=== PATIENT | male | born 1955 | race Caucasian/White ===

== ENCOUNTER 2023-11-01 15:54 | Inpatient (IN) | payer MEDICARE, OTHER, SELFPAY ==
--- NOTE | ~2023-11-01 | MR_ITS ---
EXAMINATION: MR BRAIN WITHOUT CONTRAST CLINICAL INFORMATION: Right-sided facial droop, dysarthria COMPARISON: CTA 11/01/2023 TECHNIQUE: MRI of the brain was obtained using routine sequences without contrast. FINDINGS: Motion degraded examination. There is an acute infarct involving the left frontal lobe precentral gyrus with significant mass effect nor hemorrhagic transformation. No acute intracranial hemorrhage or extra-axial fluid collection. Mild global cerebral volume loss. Patchy T2 FLAIR hyperintense foci in the subcortical and periventricular white matter, nonspecific but presumably advanced chronic microangiopathy. Chronic lacunar infarcts within the bilateral cerebellar hemispheres and multiple punctate within the bilateral skelton radiata/centrum semiovale. No mass lesion, mass effect, or herniation pattern. Normal intracranial arterial and dural venous sinus flow voids. Normal appearance of the midline structures. The orbits are grossly unremarkable. The paranasal sinuses and mastoids are well aerated. Normal marrow signal. MR/MR head/brain wo con IMPRESSION: 1. Acute infarct involving the left frontal lobe precentral gyrus with significant mass effect nor hemorrhagic transformation. 2. Mild volume loss and nonspecific white matter disease, presumably moderate chronic microangiopathy. 3. Chronic lacunar infarcts within the bilateral cerebellar hemispheres and multiple punctate within the bilateral skelton radiata/centrum semiovale.
--- NOTE | ~2023-11-01 | CT_ITS ---
EXAMINATION: CT HEAD WITHOUT CONTRAST (STROKE PROTOCOL) CLINICAL INFORMATION: Stroke protocol. Left facial droop and dysarthria COMPARISON: None available. TECHNIQUE: Contiguous axial imaging was performed from the skull base to vertex without intravenous administration of contrast. This CT examination was performed using dose optimization techniques as appropriate, variously including the following: *Automated exposure control *Adjustment of mA and/or kV according to patient size (this includes techniques or standardized protocols for targeted exams where dose is matched to indication/reason for exam; i.e. extremities or head) *Use of iterative reconstruction technique DLP: 653 mGy-cm FINDINGS: There is no acute intracranial hemorrhage. There is no evidence of acute/subacute cerebral or cerebellar infarction. There is moderate microvascular ischemic change. There is a punctate focus of hyperdensity within the posterior right insula which may represent a focally occluded vessel. There is no mass effect or midline shift. No extra-axial fluid collection. The ventricles are normal in size. The orbits are symmetric and within normal limits. The visualized paranasal sinuses are clear. Mastoid air cells are clear. CT/CT head for stroke IMPRESSION: No acute intracranial hemorrhage or evidence of acute/subacute cerebral or cerebellar infarction. There is a punctate focus of hyperdensity within the posterior right insula which may represent a focally occluded vessel. Moderate microvascular ischemic change. This critical result was discussed with Angela Combs md at 4:27 PM hours on 11/01/2023. It was ascertained that the content and urgency of the report was understood at the time of direct communication.
--- NOTE | ~2023-11-01 | XR_ITS ---
EXAMINATION: XR CHEST CLINICAL INFORMATION: Stroke protocol COMPARISON: None available. TECHNIQUE: Frontal portable view of the chest was obtained. 4:59 PM FINDINGS: No significant abnormality is noted involving the heart, lungs, mediastinum, bony thorax or soft tissues. XR/XR chest 1V IMPRESSION: Unremarkable examination.
--- NOTE | ~2023-11-01 | CT_ITS ---
EXAMINATION: CT angio head neck stroke CLINICAL INFORMATION: Stroke protocol. Left facial droop and dysarthria. COMPARISON: CT scan of the head 11/01/2023. TECHNIQUE: Umbrella Finisher images were obtained. A CT angiogram of the head and neck was performed in the arterial phase after the intravenous administration of 70 mL Omnipaque 350. Pre and delayed postcontrast images of the head were also obtained. 3D images were processed on an independent workstation under concurrent supervision. Arterial stenoses are measured in accordance with NASCET criteria or similar method if applicable. This CT examination was performed using dose optimization techniques as appropriate, including one or more of the following: Automated exposure control, iterative reconstruction, and adjustment of technique factors (mA and/or kVp) according to patient size (this includes techniques or standardized protocols for targeted exams where dose is matched to indication/reason for exam). Fleischner Society criteria for the followup of incidental pulmonary nodules was implemented if appropriate. 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 Postcontrast images of the brain otherwise reveal no abnormal intracranial mass or enhancement. There is no intracranial mass effect or midline shift. Lateral and third ventricles are normal. No hydrocephalus. There are numerous foci of hypoattenuation within the periventricular white matter that most likely represent a chronic manifestation of small vessel ischemia. Schwartz-white matter differentiation is otherwise preserved and there is no evidence of acute territorial infarct. The calvarium and skull base are intact. No mastoid middle ear effusion. No active paranasal sinus disease. Globes and orbits are grossly symmetric. CT angiogram neck: The aortic arch apex is normal. Origins of the major aortic branches are widely patent. Common carotid arteries are patent. There is a small amount of partially calcified atheromatous plaque at both carotid bifurcations. No stenosis of the extracranial internal carotid arteries. The cervical segments of the vertebral arteries are patent. CT angiogram head: Atheromatous calcification involves the cavernous segments of both internal carotid arteries. Intracranial internal carotid arteries are otherwise patent. Intradural vertebral artery segments and basilar artery are patent. Anterior, middle, and posterior cerebral complexes are normal. No intracranial large vessel occlusion. No identifiable aneurysm or high flow vascular lesion. Other: Soft tissues of the neck including the thyroid gland are normal. No pathologically enlarged cervical lymph nodes. There is a small calcified subpleural granuloma located within the right upper lobe. Visualized lung apices are otherwise clear. No acute osseous finding. Specifically no worrisome lytic or blastic osseous lesion. CT/CT angio head neck stroke IMPRESSION: There are numerous chronic small vessel ischemic changes within the periventricular white matter. No evidence of acute territorial infarct or hemorrhage. No abnormal intracranial mass or enhancement. There is a developmental venous anomaly traversing the left inferior frontal lobe. No stenosis of the cervical carotid or vertebral arteries. No intracranial large vessel occlusion.
--- NOTE | 2023-11-01 16:00 | ECG_ITS ---
Test Reason : STROKE PROTOCOL Blood Pressure : / mmHG Vent. Rate : 080 BPM Atrial Rate : 080 BPM P-R Int : 138 ms QRS Dur : 074 ms QT Int : 386 ms P-R-T Axes : 054 004 031 degrees QTc Int : 445 ms Normal sinus rhythm Normal ECG No previous ECGs available Referred By: Karson Morales Electronically Signed By:Nadir Leyva
[2023-11-01 16:01] VITALS: BP 114/72; BP 142/76; PULSE 84; PULSE 92; RESP 18; TEMP 36.9; O2SAT 94; O2SAT 98; BMI 26.7
[2023-11-01 16:07] LABS: MANUAL DIFF FLAG NO
[2023-11-01 16:08] LABS: Basophils Percent Auto 0.5 % (0-2); Eosinophils Absolute Auto 0.1 X10*3/uL (0.0-0.4); Eosinophils Percent Auto 1.7 % (0-4); Hematocrit 42.8 % (42.0-52.0); Hemoglobin 14.9 g/dl (14.0-18.0); Imm Gran Abs Auto 0.02 X10*3/uL (0.00-0.03); Imm Gran Pct Auto 0.3 % (0.0-0.4); Lymphocytes Absolute Auto 2.1 X10*3/uL (1.2-4.9); Lymphocytes Percent Auto 35.3 % (20-40); Mean Corpuscular HGB Conc 34.8 g/dl (31.0-36.0); Mean Corpuscular Hemoglobin 32.8 pg (27.0-33.0); Mean Corpuscular Volume 94.3 fL (80.0-98.0); Mean Platelet Volume 9.8 fL (9.4-12.4); Monocytes Absolute Auto 0.6 X10*3/uL (0.1-1.2); Monocytes Percent Auto 10.4 % (2-11); Neutrophils Percent Auto 51.8 % (45-73); Platelet Count 231 X10*3/uL (160-400); Red Blood Count 4.54 X10*6/uL (4.60-5.80); Red Cell Distribution Width 12.4 % (11.0-16.0); White Blood Count 5.9 X10*3/uL (4.8-10.8)
[2023-11-01 16:14] LABS: INTERNATIONAL NORM RATIO 0.9 (0.9-1.1); Prothrombin Time 11.3 SEC (11.1-13.3)
[2023-11-01 16:17] LABS: Partial Thromboplastin Time 31.3 SEC (26.0-36.8)
[2023-11-01 16:18] LABS: Stroke Lab Use COMPLETE
--- NOTE | 2023-11-01 16:19 | ED_ITS ---
HPI - Neuro Symptoms/Deficit General Chief Complaint: Stroke Stated Complaint: from [facility] ed scale 3, r sided facial randy Time Seen by Provider: 11/01/23 15:57 Source: patient and EMS Mode of arrival: EMS Limitations: no limitations History of Present Illness ED Provider: Dr. Juliane Combs HPI Narrative: Patient comes to the emergency room via ambulance from [facility]. According to the patient, at 14:30, patient noticed that his arm was having abnormal involuntary movements. Patient was mowing the lawn at work. Patient continue to work. Around 330, patient noticed that he was trying to speak to coworkers, he has speech was significantly slurred. [place] called 911. Per EMS, patient was found to have dysarthria and right-sided mouth droop, no upper or lower extremity weakness. Patient states that he is aware that his speech is off. Seems that earlier today he had a bit of aphasia but by the time he arrived in the emergency room the aphasia resolved Related Data Allergies Allergy/AdvReac Type Severity Reaction Status Date / Time No Known Allergies Allergy Verified 11/01/23 16:03 Review of Systems 2 Review of Systems: Constitutional : No Weight loss, No Fever, No Chills, No Night Sweats, No Fatigue, No Malaise ENT/Mouth : No Hearing loss, No Ear Pain, No Nasal Congestion, No Sinus Pain, No Hoarseness, No sore throat, No Rhinorrhea, No Swallowing Difficulty Eyes: No Eye Pain, No Swelling, No Redness, No Foreign Body, No Discharge, No Vision Changes Cardiovascular : No Chest Pain, No SOB, No Dyspnea on Exertion, No Orthopnea, No Edema, No Palpitations Respiratory : No Cough, No Sputum, No Wheezing, No Smoke Exposure, No Dyspnea Gastrointestinal : No Nausea, No Vomiting, No Diarrhea, No Constipation, No abdominal Pain, No Hematochezia, No Melena Genitourinary : no irregular bleeding, No Dysuria, No Urinary Frequency, No Hematuria, No Urinary Incontinence, No Urgency, No Flank Pain, No Urinary Flow Changes, No Hesitancy Musculoskeletal : No joint pain, No Myalgias, No Joint Swelling Skin : No Skin Lesions, No rash Neuro : complaining of dysarthria and a voluntary right arm Movement Psych : No Anxiety/Panic, No Depression, No SI/HI/AH/VH, No Social Issues, Heme/Lymph: No Bruising, No Bleeding,No Lymphadenopathy Endocrine : No Polyuria, No Polydipsia, No Temperature Intolerance [facility] Past Medical History Medical History (Updated 11/01/23 @ 17:53 by Juliane Combs MD) Hyperlipidemia Social History Social History Smoked in Last 30 Days: No Use of substances other than those prescribed or required for medical reasons: No Advance Directives: No Advance Directives Information Provided: No Do you have a plan to hurt others: No Plan Physical Exam 2 Vital Signs: Vital Signs: Last Vital Signs Temp 97.9 F 11/01/23 17:14 Pulse 73 11/01/23 17:14 Resp 13 11/01/23 17:14 BP 135/76 11/01/23 17:14 Pulse Ox 96 11/01/23 17:14 O2 Del Method Room Air 11/01/23 17:14 BMI result Body Mass Index 26.7 Const: Other: Appearance: Alert. Oriented X3. No acute distress. Eyes: Pupils equal, round and reactive to light. ENT: Pharynx normal. Neck: Normal inspection. Neck supple. No lymph nodes noted. No crepitus CVS: Normal heart rate and rhythm. Pulses normal. Normal S1 and S2 Respiratory: No respiratory distress. Breath sounds normal. No Wheezing. No rales Abdomen: Soft and nontender. No rigidity. No distention. Skin: Skin warm and dry. Normal skin color. Normal skin turgor. Extremities: No lower extremity edema. No Lacerations. No Rash Neuro: patient has mild dysarthria, right-sided mouth droop, 5/5 strength in bilateral upper and lower extremities. No drifting, NIH 2. patient is able to read a loud with nearly normal speech, patient is able to repeat words. Patient is able to name pictures/ drawings without any difficulty, other than patient needs glasses to read and he did not bring with him. but still able to identify objects and name them Psych: calm, cooperative, normal affect Medications Administered Discontinued Medications Generic Name Dose Route Start Last Admin Trade Name Carlosq PRN Reason Stop Dose Admin Aspirin 325 mg 11/01/23 15:59 11/01/23 16:41 Aspirin 325 Mg Tablet PO 11/01/23 16:00 325 mg ONCE ONE Administration Sodium Chloride 1,000 mls @ 999 mls/hr 11/01/23 16:00 11/01/23 16:37 Ns IV 11/01/23 17:00 999 mls/hr .Q1H1M CAMERON Administration Sodium Chloride 1,000 mls @ 999 mls/hr 11/01/23 16:00 11/01/23 16:37 Ns IV 11/01/23 17:00 999 mls/hr .Q1H1M CAMERON Administration Iohexol 100 ml 11/01/23 16:32 11/01/23 16:33 Iohexol 350 Mg/Ml 100 Ml Infus..Btl IV 11/01/23 16:33 70 ml ONCE ONE Administration Medical Decision Making Medical Decision Making MDM Narrative: - I discussed the dry CT scan with our radiologist on-call. There is no acute intracranial hemorrhage or evidence of acute or subacute cerebral or cerebellar infarction. However there is a punctured focus of hyperdensity within the posterior right insula which may represent a focally occluded vessel - I discussed the patient with Dr. Ramirez from neurology at 16:35. at this time, it is possible that patient may have focal thrombi. We will wait for the CTA to make a decision. - I discussed the CTA findings with Dr. Ramirez. At this time, the deficits are minor, we will not proceed with TNK - I discussed the above-mentioned with the patient and his , both agreeable with the plan - patient's vitals stable, received a dose of aspirin already - I discussed the patient with our hospitalist, patient being admitted Differential Diagnosis Differential Diagnoses: The differential diagnosis associated with the presentation includes ( TIA, CVA, seizure) Admission/Observation Consideration of admission/observation: Escalation of care including admission/observation considered Consult Healthcare Provider Management of the patient was discussed with: Hospitalist and Fire[employer] Sales Associate Lab Data MDM Lab Attestation statement: I reviewed the patient's lab results. 11/01/23 15:57 11/01/23 15:57 Labs: Lab Results 11/01/23 11/01/23 11/01/23 Range/Units 15:57 15:58 16:45 WBC 5.9 (4.8-10.8) X10*3/uL RBC 4.54 L (4.60-5.80) X10*6/uL Hgb 14.9 (14.0-18.0) g/dl Hct 42.8 (42.0-52.0) % MCV 94.3 (80.0-98.0) fL MCH 32.8 (27.0-33.0) pg MCHC 34.8 (31.0-36.0) g/dl RDW 12.4 (11.0-16.0) % Plt Count 231 (160-400) X10*3/uL MPV 9.8 (9.4-12.4) fL Immature Gran % (Auto) 0.3 (0.0-0.4) % Neut % (Auto) 51.8 (45-73) % Lymph % (Auto) 35.3 (20-40) % [place] % (Auto) 10.4 (2-11) % Eos % (Auto) 1.7 (0-4) % Baso % (Auto) 0.5 (0-2) % Lymph # (Auto) 2.1 (1.2-4.9) X10*3/uL [place] # (Auto) 0.6 (0.1-1.2) X10*3/uL Eos # (Auto) 0.1 (0.0-0.4) X10*3/uL Baso # (Auto) 0.0 (0.0-0.2) X10*3/uL Abs Immat Gran (auto) 0.02 (0.00-0.03) X10*3/uL Absolute Neuts (auto) 3.0 (2.0-8.3) x10*3/uL Absolute Nucleated RBC 0.000 (0.0-0.012) X10*3/uL Nucleated RBC % (auto) 0.0 (0.0-0.2) /100WBC Hold Purple Top SEE NOTE PT 11.3 (11.1-13.3) SEC Whole Blood PT 12.2 (11.1-13.5) sec INR 0.9 (0.9-1.1) Whole Blood INR 1.0 (0.9-1.1) APTT 31.3 (26.0-36.8) SEC Hold Blue Top SEE NOTE Sodium 143 (135-145) mmol/L Potassium 4.2 (3.3-5.1) mmol/L Chloride 108 (96-108) mmol/L Carbon Dioxide 24 (22-29) mmol/L Anion Gap 15 (12-20) BUN 16 (9-16) mg/dL Creatinine 0.85 (0.5-1.4) mg/dL Estim Creat Clear Calc 90.0 Estimated GFR > 60 Random Glucose 104 (60-115) mg/dL Calcium 10.3 H (8.4-10.2) mg/dL Troponin I High Sens < 2.7 (<3.5-35.0) ng/L Triglycerides 87 (<150) mg/dL Cholesterol 161 (<200) mg/dL LDL Cholesterol, Calc 96 (<100) mg/dL HDL Cholesterol 48 (>40) mg/dL COVID-19 (GABRIELE) Negative (Negative) COVID-19 Clin Com See Note Independent Interpretation I performed an independent interpretation of an: CT Scan Radiology Impression Discussion of test interpretation with radiology: I discussed test interpretation with the radiologist and I have reviewed the radiologist's reading. Radiologist Impression: Head: There is a developmental venous anomaly traversing the left inferior frontal lobe. Postcontrast images of the brain otherwise reveal no abnormal intracranial mass or enhancement. There is no intracranial mass effect or midline shift. Lateral and third ventricles are normal. No hydrocephalus. There are numerous foci of hypoattenuation within the periventricular white matter that most likely represent a chronic manifestation of small vessel ischemia. Schwartz-white matter differentiation is otherwise preserved and there is no evidence of acute territorial infarct. The calvarium and skull base are intact. No mastoid middle ear effusion. No active paranasal sinus disease. Globes and orbits are grossly symmetric. CT angiogram neck: The aortic arch apex is normal. Origins of the major aortic branches are widely patent. Common carotid arteries are patent. There is a small amount of partially calcified atheromatous plaque at both carotid bifurcations. No stenosis of the extracranial internal carotid arteries. The cervical segments of the vertebral arteries are patent. CT angiogram head: Atheromatous calcification involves the cavernous segments of both internal carotid arteries. Intracranial internal carotid arteries are otherwise patent. Intradural vertebral artery segments and basilar artery are patent. Anterior, middle, and posterior cerebral complexes are normal. No intracranial large vessel occlusion. No identifiable aneurysm or high flow vascular lesion. Other: Soft tissues of the neck including the thyroid gland are normal. No pathologically enlarged cervical lymph nodes. There is a small calcified subpleural granuloma located within the right upper lobe. Visualized lung apices are otherwise clear. No acute osseous finding. Specifically no worrisome lytic or blastic osseous lesion. CT/CT angio head neck stroke IMPRESSION: There are numerous chronic small vessel ischemic changes within the periventricular white matter. No evidence of acute territorial infarct or hemorrhage. No abnormal intracranial mass or enhancement. There is a developmental venous anomaly traversing the left inferior frontal lobe. No stenosis of the cervical carotid or vertebral arteries. No intracranial large vessel occlusion. NIH Stroke Scale Internal: Initial- Upon Arrival Level of Consciousness: Alert Level of Consciousness Questions: Answers both questions correctly Level of Consciousness Commands: Performs both tasks correctly Best Gaze: Normal Visual: No visual loss Facial Palsy: Minor paralyis Motor Arm (Right): No drift Motor Arm (Left): No drift Motor Leg (Right): No drift Motor Leg (Left): No drift Limb Ataxia: Absent Sensory: Normal Best Language: No aphasia Dysarthia: Mild to moderate dysarthria Extinction and Inattention: No abnormality Score: 2 Critical Care Time Critical Care Time Critical Care Time: Yes Total Critical Care Time: 60 Attestation: I have personally provided critical care time. Time includes review of lab data, radiology results, discussion with consultants, and monitoring for potential decompensation. Intervention performed as documented. Discharge Plan Discharge Clinical Impression: Cerebrovascular accident Patient Disposition: Admitted As Inpatient Print Language: Nepali
[2023-11-01 16:26] LABS: Anion Gap 15 (12-20); Blood Urea Nitrogen 16 mg/dL (9-16); Calcium 10.3 mg/dL (8.4-10.2); Carbon Dioxide 24 mmol/L (22-29); Chloride 108 mmol/L (96-108); Cholesterol 161 mg/dL (<200); Estimated Glomerular Filt Rate > 60; Glucose Random 104 mg/dL (60-115); HDL Cholesterol 48 mg/dL (>40); LDL Cholesterol Calculated 96 mg/dL (<100); Potassium 4.2 mmol/L (3.3-5.1); Sodium 143 mmol/L (135-145); Triglycerides 87 mg/dL (<150)
[2023-11-01] MEDS: iohexoL 350 MG/ML 100 ML INFUS..BTL IV (16:33)
[2023-11-01 16:34] LABS: Troponin-I High Sensitivity < 2.7 ng/L (<3.5-35.0)
[2023-11-01 16:35] LABS: Prothrombin Time Whole Bld POC 12.2 sec (11.1-13.5)
[2023-11-01] MEDS: 0.9 % Sodium Chloride 1,000 ML 999 ML IV ×2 (16:37)
[2023-11-01 16:40] VITALS: BP 127/70; PULSE 75; RESP 15; O2SAT 94
[2023-11-01] MEDS: Aspirin 325 MG TABLET PO (16:41)
[2023-11-01 17:10] LABS: COVID-19 Test Negative (Negative); IDNOW Serial# 58CA691E
[2023-11-01 17:14] VITALS: BP 135/76; PULSE 73; RESP 13; TEMP 36.6; O2SAT 96
--- NOTE | 2023-11-01 18:08 | P.HPHOSP_ITS ---
History of Present Illness Date of Service: 11/01/23 Attending physician on admission: Harshad [facility] Chief Complaint: Right-sided facial droop, dysarthria Pt is a 67-year-old male with a PMH significant only for?HLD who follows regularly with his PCP who presents to the ED with?right-sided facial droop and difficulty speaking since earlier this afternoon. Patient states symptoms began at approximately 02:30 when he was mowing the lawn at [facility]. Patient states that all of a sudden his right arm started moving up and down uncontrollably approximately 4-5 times and lasting a total of 10 seconds. Shortly thereafter patient noticed he was slurring his words and having difficulty speaking while talking to co-workers. Also noted some numbness on his right face that has since resolved. Patient then presented to the ED for further examination. Patient denies any other acute medical concerns. Denies numbness, tingling, or weakness in extremities. No headache, acute vision changes, memory impairment, difficulty word finding, or fogginess and thinking. Denies difficulty swallowing. Denies chest pain/pressure, palpitations. No shortness a breath. Denies fever, chills, nausea, vomiting, abdominal pain. In the ED pt's vitals were stable and WNL. Labs were grossly unremarkable. No leukocytosis. Stable H&H. No significant electrolyte abnormalities. Renal function WNL. Troponin negative. Lipid panel WNL. CT?of head showed no acute intracranial hemorrhage or evidence of acute/subacute cerebral or cerebellar infarction, but did show punctate focus of hyperdensity within the posterior right insula which may represent a focally occluded vessel. CTA of head/neck showed numerous chronic small-vessel ischemic changes within the periventricular white matter, but no evidence of acute territorial infarction or hemorrhage, and no abnormal intracranial mass or enhancement. Did show a developmental venous anomaly transversing the left anterior frontal lobe. Also was negative for stenosis of the cervical carotid or vertebral arteries, and showed no intracranial large vessel occlusion. EKG demonstrated normal sinus rhythm without evidence of significant ST elevations or depressions. Pt was treated with 2 L IVF and aspirin 325 mg. Pt will be admitted to the hospital for treatment and further evaluation of right-sided facial droop and dysarthria concerning for CVA. Review of Systems 2 Review of Systems: Involuntary right arm movements Right-sided facial numbness and droop Dysarthria Denies numbness, tingling, weakness in extremities No headache, acute vision changes, memory impairment, or delayed thinking No chest pain/pressure, palpitations Denies shortness a breath or difficulty breathing No fever, chills, nausea, vomiting, abdominal pain [facility] Medical History (Updated 11/01/23 @ 17:53 by Juliane Combs MD) Hyperlipidemia Social History Smoked in Last 30 Days: No Use of substances other than those prescribed or required for medical reasons: No Advance Directives: No Advance Directives Information Provided: No Do you have a plan to hurt others: No Plan Meds Allergies Allergy/AdvReac Type Severity Reaction Status Date / Time No Known Allergies Allergy Verified 11/01/23 16:03 Home Medications ?Medication ?Instructions ?Recorded ?Confirmed ?Last Taken ?Type multivitamin 1 tab PO DAILY 11/01/23 11/01/23 11/01/23 History simvastatin 40 mg tablet 40 mg PO DAILY 11/01/23 11/01/23 11/01/23 History Physical Exam 2 Vital Signs and Narrative: Vital Signs: Last Vital Signs Temp 97.9 F 11/01/23 17:14 Pulse 73 11/01/23 17:14 Resp 13 11/01/23 17:14 BP 135/76 11/01/23 17:14 Pulse Ox 96 11/01/23 17:14 O2 Del Method Room Air 11/01/23 17:14 BMI result Body Mass Index 26.7 General: AOx3, no acute distress Resp: CTA bilaterally CVS: S1, S2, RRR GI: +BS, NT, no distention Skin: Warm, dry Neuro: Cranial nerves II-XII grossly intact bilaterally. Motor grossly intact bilaterally. Right-sided facial droop with noted d ysarthria. Sensation to light touch intact of face, upper and lower extremities bilaterally. Strength of upper and lower extremities bilaterally intact and symmetrical. Patient handling secretions well. Extremities: No edema Psych: Appropriate affect Results Labs 11/01/23 15:57 11/01/23 15:57 Labs: Laboratory Results - last 24 hr 11/01/23 11/01/23 11/01/23 15:57 15:58 16:45 MCV 94.3 MCH 32.8 MCHC 34.8 RDW 12.4 Plt Count 231 MPV 9.8 Immature Gran % (Auto) 0.3 Neut % (Auto) 51.8 Lymph % (Auto) 35.3 [place] % (Auto) 10.4 Eos % (Auto) 1.7 Baso % (Auto) 0.5 Lymph # (Auto) 2.1 [place] # (Auto) 0.6 Eos # (Auto) 0.1 Baso # (Auto) 0.0 Abs Immat Gran (auto) 0.02 Absolute Neuts (auto) 3.0 Absolute Nucleated RBC 0.000 Nucleated RBC % (auto) 0.0 Hold Purple Top SEE NOTE PT 11.3 Whole Blood PT 12.2 INR 0.9 Whole Blood INR 1.0 APTT 31.3 Hold Blue Top SEE NOTE Anion Gap 15 Estim Creat Clear Calc 90.0 Estimated GFR > 60 Random Glucose 104 Calcium 10.3 H Troponin I High Sens < 2.7 Triglycerides 87 Cholesterol 161 LDL Cholesterol, Calc 96 HDL Cholesterol 48 COVID-19 (GABRIELE) Negative COVID-19 Clin Com See Note Imaging Radiologist's Impressions: Impressions Head CT 11/01/23 16:07 IMPRESSION: No acute intracranial hemorrhage or evidence of acute/subacute cerebral or cerebellar infarction. There is a punctate focus of hyperdensity within the posterior right insula which may represent a focally occluded vessel. Moderate microvascular ischemic change. This critical result was discussed with Angela Combs md at 4:27 PM hours on 11/01/2023. It was ascertained that the content and urgency of the report was understood at the time of direct communication. Head/Neck CTA 11/01/23 16:32 IMPRESSION: There are numerous chronic small vessel ischemic changes within the periventricular white matter. No evidence of acute territorial infarct or hemorrhage. No abnormal intracranial mass or enhancement. There is a developmental venous anomaly traversing the left inferior frontal lobe. No stenosis of the cervical carotid or vertebral arteries. No intracranial large vessel occlusion. Assessment and Plan (1) Cerebrovascular accident: Status: Acute Plan Pt is a 67-year-old male with a PMH significant only for?HLD who follows regularly with his PCP who presents to the ED with?right-sided facial droop and difficulty speaking since earlier this afternoon. Pt will be admitted to the hospital for treatment and further evaluation of right-sided facial droop and dysarthria concerning for CVA. Right-sided facial droop and dysarthria Symptoms began earlier this afternoon, also included 10-second episode of involuntary right arm movement Concerning for CVA Patient with continued right-sided facial droop and dysarthria; facial numbness resolved CT of head showed punctate focus of hyperdensity within posterior right insula possibly representing focally occluded vessel CTA of head/neck negative for acute territorial infarct or hemorrhage, no stenosis of cervical carotid, vertebral arteries, or intracranial large vessel occlusion Patient given aspirin in the ED Lipid profile WNL Start on aspirin 81 mg daily Continue statin Echocardiogram with bubble study PT/OT and speech evaluation Neurology consult Monitor on telemetry Full Code, though pt does not want prolonged resuscitation attempts or prolonged time on life support Attending:?Dr. Carreno DVT Prophylaxis: Lovenox Pt will require a hospitalization of at least two nights for treatment and further evaluation of continued right-sided facial droop and dysarthria concerning for acute CVA. Quality Stroke Does the patient have a stroke diagnosis?: Yes Reason for No Anti-thrombotic by Day Two: Contraindicated (Spoke to neurology who held off on tNK due to pt's symptoms being minor) VTE Prior VTE?: No VTE Risk Level:: Medical - moderate - high VTE Device Contraindication: Treatment Not Indicated VTE Drug Contraindication: N/A - Med Ordered
[2023-11-01 19:14] VITALS: BP 143/71; PULSE 77; RESP 18; TEMP 37.1; O2SAT 95
[2023-11-01] MEDS: Enoxaparin Sodium 40 MG/0.4 ML SYRINGE SUBCUT (19:39)
--- NOTE | 2023-11-01 20:05 | PHA.MEDREC ---
Addendum entered by [facility] 11/01/23 20:14: MED REC DOUBLE CHECKED BY [facility] Original Note: Pharmacy Consult ? Medication Reconciliation Pharmacy has completed the medication reconciliation. Confirmed medications with patient.
[2023-11-01 22:50] VITALS: BP 121/74; PULSE 80; RESP 16; TEMP 36.6; O2SAT 95
--- NOTE | 2023-11-01 22:50 | PC.NURSE ---
ok for pt to go to the floor at this time, @2004, i was asked to hold pt, per Anne Balderas. pt is doing better at this time, no slurred speech, and the left side facial droop is gone
[2023-11-01 23:45] VITALS: BP 127/73; PULSE 70; RESP 18; TEMP 36.5; O2SAT 96
[2023-11-02 03:40] VITALS: BP 112/66; PULSE 62; RESP 20; TEMP 36.1; O2SAT 96
[2023-11-02 07:25] VITALS: BP 112/66; PULSE 62; O2SAT 96
[2023-11-02 07:54] VITALS: BP 115/71; PULSE 64; RESP 18; TEMP 36.3; O2SAT 96
[2023-11-02] MEDS: Aspirin Enteric Coated 81 MG TABLET.DR PO (08:58)
[2023-11-02] MEDS: 0.9 % Sodium Chloride Flush 3 ML SYRINGE IVFLUSH (08:58)
--- NOTE | 2023-11-02 09:53 | P.CNNE_ITS ---
History of Present Illness Data of Consult Service Date: 11/02/23 Primary Care Provider: Shayla Arceo MD HPI Reason for consult: Stroke 67 years old man with apparently no underlying hypertension or diabetes or significant hyperlipidemia or any obvious stroke risk factor including lack of drug abuse or significant alcohol drinking, physically quite active, came to hospital with stroke-like symptoms. He was working outside when he noted that his right hand started to move on its own. It lasted few seconds and then he noted something wrong with his speech. He came to emergency room and initial evaluation only suggested mild facial asymmetry and mild dysarthria. After discussing with ER physician and reviewing findings of his CT and CTA, it was decided not to treat him with TNK despite the fact that he might be having a small ischemic infarction. Deficit was minor and CT was significantly abnormal though not revealing any acute abnormality. Now he was feeling better. Apparently there was no confusion associated with this episode. Review of Systems 2 Review of Systems: No chest pain shortness of breath headache or exposure to new medicine or cold or flu-like illness PMFSH Past Medical History Medical History (Updated 11/02/23 @ 09:57 by David Ramirez MD) Hyperlipidemia Social History Social History Household Members: Spouse Housing: House Patient Tobacco Use Status: Never used Tobacco Meds Allergies Allergy/AdvReac Type Severity Reaction Status Date / Time No Known Allergies Allergy Verified 11/01/23 16:03 Active Medications: Current Medications Acetaminophen (Acetaminophen 325 Mg Tablet) 650 mg PO Q6H PRN PRN Reason: Pain, Mild (Pain Scale 1-3), fever or headache Aspirin (Aspirin Enteric Coated 81 Mg Tablet.Dr) 81 mg PO DAILY [facility] Last Admin: 11/02/23 08:58 Dose: 81 mg Benzonatate (Benzonatate 100 Mg Capsule) 100 mg PO TID PRN PRN Reason: Cough Calcium Carbonate (Calcium Carbonate 750 Mg Tab.Chew) 750 mg PO Q4H PRN PRN Reason: Heartburn Enoxaparin Sodium (Enoxaparin Sodium 40 Mg/0.4 Ml Syringe) 40 mg SUBCUT Q24H [facility] Last Admin: 11/01/23 19:39 Dose: 40 mg Magnesium Hydroxide (Milk Of Magnesia 30 Ml Oral.Susp) 30 ml PO DAILY PRN PRN Reason: Constipation Melatonin (Melatonin 3 Mg Tablet) 6 mg PO BEDTIME PRN PRN Reason: Insomnia Ondansetron HCl (Ondansetron Hcl 4 Mg/2 Ml Vial) 4 mg IVPUSH Q8H PRN PRN Reason: Nausea and Vomiting Sodium Chloride (0.9 % Sodium Chloride Flush 3 Ml Syringe) 3 ml IVFLUSH QSHIFT [facility] Last Admin: 11/02/23 08:58 Dose: 3 ml Home Medications ?Medication ?Instructions ?Recorded ?Confirmed ?Last Taken ?Type multivitamin 1 tab PO DAILY 11/01/23 11/01/23 11/01/23 History simvastatin 40 mg tablet 40 mg PO DAILY 11/01/23 11/01/23 11/01/23 History Physical Exam 2 Vital Signs: Vital Signs: Last Vital Signs Temp 97.4 F 11/02/23 07:54 Pulse 64 11/02/23 07:54 Resp 18 11/02/23 07:54 BP 115/71 11/02/23 07:54 Pulse Ox 96 11/02/23 07:54 O2 Del Method Room Air 11/02/23 07:54 BMI result Body Mass Index 26.7 Neuro: Other: He is alert and awake with normal spontaneity of speech fluency comprehension and affect. There is maybe minimal left-sided facial flatness. No pronator drift. Deep tendon reflexes are trace to 1+ with flexor plantars. Retpbt-oa-ghlp testing is normal. Speech is normal. Results Labs 11/01/23 15:57 11/01/23 15:57 Labs: Short CBC 11/01/23 Range/Units 15:57 WBC 5.9 (4.8-10.8) X10*3/uL Hgb 14.9 (14.0-18.0) g/dl Hct 42.8 (42.0-52.0) % Plt Count 231 (160-400) X10*3/uL BMP 11/01/23 15:57 Sodium 143 Potassium 4.2 Chloride 108 Carbon Dioxide 24 BUN 16 Creatinine 0.85 Calcium 10.3 H CTA and CTA of brain and neck were reviewed. No obvious acute abnormality was noted. Extensive hypodense signal abnormalities were noted in cerebral hemispheres. His EKG revealed normal sinus rhythm. Assessment and Plan (1) Cerebrovascular accident: Qualifiers: CVA mechanism: unspecified Qualified Code(s): I63.9 - Cerebral infarction, unspecified Status: Acute 67 years old man who apparently has no significant stroke risk factor, family history of cancer (mother and brother) came to hospital with an episode of few seconds of right hand shaking without alteration of consciousness associated with dysarthria. Now he was without though symptoms. Examination did not reveal any significant finding other than mild facial asymmetry. His brain imaging with CT scan was quite abnormal and difficult to explain based upon lack of any significant vascular risk factors. This would raise possibility of either genetic based cerebrovascular disease or an alternate systemic disease. My recommendation is to obtain an MRI of brain for better definition and make sure age-appropriate malignancy workup is done. In the meantime continue treating him with baby aspirin daily and statin. Procedures Date of Service Date of Service: 11/02/23
[2023-11-02] MEDS: LORazepam 2 MG/ML VIAL 1 MG IVPUSH (11:26)
--- NOTE | 2023-11-02 14:11 | PM.DS ---
DS: Providers Provider Date of Service: 11/02/23 Date of admission: 11/01/23 18:57 Primary care physician: Shayla Arceo MD Consults: 11/01/23 19:00 Consult to Neurology Routine Consulting Provider: [facility] Reason for consultation: Right-sided facial droop & dysarthria concerning for CVA DS: Diagnosis Discharge Diagnosis (1) Cerebrovascular accident: Status: Acute DS: Summary Hospital Course Hospital Course: admission hpi Attending physician on admission: [facility] Chief Complaint: Right-sided facial droop, dysarthria Pt is a 67-year-old male with a PMH significant only for?HLD who follows regularly with his PCP who presents to the ED with?right-sided facial droop and difficulty speaking since earlier this afternoon. Patient states symptoms began at approximately 02:30 when he was mowing the lawn at [facility]. Patient states that all of a sudden his right arm started moving up and down uncontrollably approximately 4-5 times and lasting a total of 10 seconds. Shortly thereafter patient noticed he was slurring his words and having difficulty speaking while talking to co-workers. Also noted some numbness on his right face that has since resolved. Patient then presented to the ED for further examination. Patient denies any other acute medical concerns. Denies numbness, tingling, or weakness in extremities. No headache, acute vision changes, memory impairment, difficulty word finding, or fogginess and thinking. Denies difficulty swallowing. Denies chest pain/pressure, palpitations. No shortness a breath. Denies fever, chills, nausea, vomiting, abdominal pain. In the ED pt's vitals were stable and WNL. Labs were grossly unremarkable. No leukocytosis. Stable H&H. No significant electrolyte abnormalities. Renal function WNL. Troponin negative. Lipid panel WNL. CT?of head showed no acute intracranial hemorrhage or evidence of acute/subacute cerebral or cerebellar infarction, but did show punctate focus of hyperdensity within the posterior right insula which may represent a focally occluded vessel. CTA of head/neck showed numerous chronic small-vessel ischemic changes within the periventricular white matter, but no evidence of acute territorial infarction or hemorrhage, and no abnormal intracranial mass or enhancement. Did show a developmental venous anomaly transversing the left anterior frontal lobe. Also was negative for stenosis of the cervical carotid or vertebral arteries, and showed no intracranial large vessel occlusion. EKG demonstrated normal sinus rhythm without evidence of significant ST elevations or depressions. Pt was treated with 2 L IVF and aspirin 325 mg. Pt will be admitted to the hospital for treatment and further evaluation of right-sided facial droop and dysarthria concerning for CVA. hospital course: The patient presented with symptoms suggestive of an acute stroke. Although a CT scan of the head showed no acute findings, the patient was observed overnight. By the next day, his symptoms had resolved. A neurologist evaluated him and recommended an MRI, which confirmed an acute stroke as follows: 1. Acute infarct involving the left frontal lobe precentral gyrus with significant mass effect nor hemorrhagic transformation. 2. Mild volume loss and nonspecific white matter disease, presumably moderate chronic microangiopathy. 3. Chronic lacunar infarcts within the bilateral cerebellar hemispheres and multiple punctate within the bilateral skelton radiata/centrum semiovale. He has been medically managed with aspirin and his Simvastatin 40 mg daily is changed to high intensity Lipitor 40 mg. He is up and amubalating on his power. His speech is clear, and his Neuro exam is unremarkable. He will have an echocardiogram arranged on outpatient basis and to follow up with Neurology and PcP on outpatient basis. He wishes to go home today. PT recommended no additional therapy Time Attestation Discharge Coordination Time (in mins): 35 Quality: Safe Use of Opioids Does Pt have an Active Cancer Diagnosis on the Problem List?: No Quality: Stroke Does the patient have a stroke diagnosis?: Yes Reason for No Anti-thrombotic at DC: N/A - Med Ordered Reason for No Anticoagulant at DC: Drug treatment not indicated Reason Not Initiating IV-Tpa: Drug treatment not indicated Reason for No Anti-thrombotic by Day Two: N/A - Med Ordered Reason for No Statin at DC: N/A - Med Ordered Physical Exam Vital Signs: Vital Signs: Last Vital Signs Temp 97.4 F 11/02/23 07:54 Pulse 64 11/02/23 07:54 Resp 18 11/02/23 07:54 BP 115/71 11/02/23 07:54 Pulse Ox 96 11/02/23 07:54 O2 Del Method Room Air 11/02/23 07:54 BMI result Body Mass Index 26.7 General: AO X 3, no acute distress Resp: CTA bilateral CVS: S1,S2,RRR GI: +BS, NT, no distention Skin: No rash Neuro: motor grossly intact, speech is normal, normal vision Psych: appropriate affect DS: Data Data Completed and Pending Labs on day of discharge: Laboratory Results - last 24 hr 11/01/23 11/01/23 11/01/23 15:57 15:58 16:45 WBC 5.9 RBC 4.54 L Hgb 14.9 Hct 42.8 MCV 94.3 MCH 32.8 MCHC 34.8 RDW 12.4 Plt Count 231 MPV 9.8 Immature Gran % (Auto) 0.3 Neut % (Auto) 51.8 Lymph % (Auto) 35.3 [place] % (Auto) 10.4 Eos % (Auto) 1.7 Baso % (Auto) 0.5 Lymph # (Auto) 2.1 [place] # (Auto) 0.6 Eos # (Auto) 0.1 Baso # (Auto) 0.0 Abs Immat Gran (auto) 0.02 Absolute Neuts (auto) 3.0 Absolute Nucleated RBC 0.000 Nucleated RBC % (auto) 0.0 Hold Purple Top SEE NOTE PT 11.3 Whole Blood PT 12.2 INR 0.9 Whole Blood INR 1.0 APTT 31.3 Hold Blue Top SEE NOTE Sodium 143 Potassium 4.2 Chloride 108 Carbon Dioxide 24 Anion Gap 15 BUN 16 Creatinine 0.85 Estim Creat Clear Calc 90.0 Estimated GFR > 60 Random Glucose 104 Calcium 10.3 H Troponin I High Sens < 2.7 Triglycerides 87 Cholesterol 161 LDL Cholesterol, Calc 96 HDL Cholesterol 48 COVID-19 (GABRIELE) Negative COVID-19 Clin Com See Note Discharge Plan Discharge Anticipated Discharge Date/Time: 11/02/23 14:07 Patient Disposition: Home, Self-Care Discharge Diagnosis: Acute Stroke Referrals: Shayla Arceo MD [Primary Care Provider] - 1 Week David Ramirez MD [Physician] - 2 Weeks (Call for appointment) Discharge Medications: New aspirin 81 mg Tablet,Delayed Release (Dr/Ec) 81 mg PO DAILY Qty: 90 0RF atorvastatin [Lipitor] 40 mg tablet 40 mg PO DAILY Qty: 90 0RF Continued multivitamin Tablet 1 tab PO DAILY Discontinued simvastatin 40 mg tablet 40 mg PO DAILY Discharge Orders: Discharge Order (Routine); Ordered 11/02/23 Ordered By: Harshad Carreno Diet: Advance to usual diet Activity on Discharge: As tolerated Stand Alone Forms: Patient Portal Discharge page Print Language: Korean Other Ambulatory Orders: CA echo transthoracic complete (Routine) Timeframe: 1 Week Facility: [facility] - Location: Cardiology Ordered By: Harshad Carreno Care Plan Goals: Stroke Prevention Health Concerns: Acute stroke Plan of Treatment: You presented with symptoms of stroke which fortunately are now resolved. MRI of the head has confirmed acute stroke. To prevent further stroke, Take Aspirin and Lipitor as directed Follow up wtih the Neurologist on outpatient basis Follow up with your Doctor within a week, call for appointment you will have an echocardiogram done on outpatient basis Assessment: See above Discharge Date/Time: 11/02/23 15:35
[2023-11-02] MEDS: Atorvastatin Calcium 40 MG TABLET PO (14:23)
--- NOTE | 2023-11-02 14:30 | MHC.CM.PN ---
CM MET WITH PT AND AT BEDSIDE PT LIVES AT HOME, IS INDEPENDENT AND WORKS PT HAS NO DME AND NO SERVICES HE SAYS HE HAS A HCP NAMING HIS HIS AGENT-COPY REQUESTED PCP: YOLANDA NICHOLS AND MARCY ALLEN DELIVERED PT CLEARED TO DC HOME TODAY WITH NO SERVICES WILL TRANSPORT
[2023-11-05 11:11] LABS: Glucose, Whole Blood 108 mg/dL (60-115)
== END 2023-11-02 15:35 | disposition home or self-care (01) | DRG 66 ==
LOC: HO.ED 17:53 → HO.EDOVER 19:10 → HO.IMC 19:45
PROVIDERS: Student in an Organized Health Care Education/Training Program; Admitting Provider Student in an Organized Health Care Education/Training Program; Emergency Provider Emergency Medicine; PCP Family Medicine; Visit Provider Internal Medicine
DX: I63.9 Cerebral infarction, unspecified (principal); E78.5 Hyperlipidemia, unspecified; R29.810 Facial weakness; R47.1 Dysarthria and anarthria; R29.702 NIHSS score 2; Z20.822 Contact with and (suspected) exposure to COVID-19; Z79.899 Other long term (current) drug therapy
CPT/HCPCS: 36415; 70450; 70496; 70498; 70551; 71045; 80048; 80061; 82947; 84484; 85025; 85610; 85730; 87635; 93005; 97161; 99285; J1650; J2060; Q9967

== ENCOUNTER → 2023-11-01 16:00 | Outpatient (BNV) | payer MEDICARE, OTHER, SELFPAY | PROVIDERS: Admitting Provider Student in an Organized Health Care Education/Training Program; Emergency Provider Emergency Medicine; PCP Family Medicine; Visit Provider Internal Medicine Cardiovascular Disease | DX: I63.9 Cerebral infarction, unspecified (principal) | CPT/HCPCS: 93010 ==

== ENCOUNTER → 2023-11-01 18:57 | Outpatient (BNV) | payer MEDICARE, OTHER, SELFPAY | PROVIDERS: Admitting Provider Student in an Organized Health Care Education/Training Program; Emergency Provider Emergency Medicine; PCP Family Medicine; Visit Provider Psychiatry & Neurology Neurology | DX: I63.9 Cerebral infarction, unspecified (principal) | CPT/HCPCS: 99223 ==

== ENCOUNTER → 2023-11-01 18:57 | Outpatient (BNV) | payer MEDICARE, OTHER, SELFPAY | PROVIDERS: Admitting Provider Student in an Organized Health Care Education/Training Program; Emergency Provider Emergency Medicine; PCP Family Medicine; Visit Provider Student in an Organized Health Care Education/Training Program | DX: I63.9 Cerebral infarction, unspecified (principal) | CPT/HCPCS: 99223; 99239 ==

== ENCOUNTER 2023-11-11 08:48 | Outpatient (REF) | payer MEDICARE, OTHER, SELFPAY ==
[2023-11-11 10:07] LABS: Erythrocyte Sedimentation Rate 6 MM/HR (0-15)
[2023-11-11 10:11] LABS: Syphilis Screen Nonreactive (Nonreactive)
[2023-11-12 11:17] LABS: Lyme Abs Screen <0.90 index
[2023-11-13 08:04] LABS: Cardiolipin IgG Ab <2.0 GPL-U/mL; Cardiolipin IgM Ab 4.3 MPL-U/mL
[2023-11-15 07:13] LABS: PTT (LAC) Screen 33 sec (<=40)
== END 2023-11-11 08:49 | disposition home or self-care (01) ==
LOC: HO.LAB 08:48
PROVIDERS: PCP Family Medicine; Visit Provider Psychiatry & Neurology Neurology
DX: I63.50 Cerebral infarction due to unspecified occlusion or stenosis of unspecified cerebral artery (principal)
CPT/HCPCS: 36415; 85597; 85598; 85613; 85652; 85730; 86147; 86617; 86618; 86780